=== PATIENT | male | born 1990 | race African-American/Black ===

== ENCOUNTER 2016-08-23 16:56 | Emergency (ER) | payer OTHER ==
[2016-08-23] MEDS ORDERED: DEXAMETHASONE 10 MG/ML VIAL PO STA (17:25)
[2016-08-23] MEDS ORDERED: DEXAMETHASONE 10 MG/ML VIAL ONE (17:27)
== END 2016-08-23 17:45 | disposition home or self-care (01) ==
DX: J06.9 Acute upper respiratory infection, unspecified (principal); B97.89 Other viral agents as the cause of diseases classified elsewhere; F17.200 Nicotine dependence, unspecified, uncomplicated

== ENCOUNTER 2016-10-18 17:58 | Emergency (ER) | payer OTHER ==
[2016-10-18] MEDS ORDERED: IBUPROFEN 600 MG TABLET PO STA (19:55)
[2016-10-18] MEDS ORDERED: ACETAMINOPHEN 325 MG TABLET PO STA (19:56)
[2016-10-18] MEDS ORDERED: ACETAMINOPHEN 325 MG TABLET PO ONE (20:01)
[2016-10-18] MEDS ORDERED: IBUPROFEN 600 MG TABLET PO ONE (20:01)
== END 2016-10-18 20:09 | disposition home or self-care (01) ==
DX: S80.01XA Contusion of right knee, initial encounter (principal); S90.01XA Contusion of right ankle, initial encounter; W22.8XXA Striking against or struck by other objects, initial encounter; Y93.89 Activity, other specified; Y99.0 Civilian activity done for income or pay; F17.200 Nicotine dependence, unspecified, uncomplicated
CPT/HCPCS: 73564; 73610; 99283; A9270

== ENCOUNTER 2016-12-11 10:34 | Emergency (ER) | payer OTHER ==
[2016-12-11] MEDS ORDERED: NICOTINE 14 MG PATCH TOP ONE (15:14)
[2016-12-11] MEDS ORDERED: NICOTINE 14 MG PATCH TOP STA (15:15)
== END 2016-12-11 17:47 ==
DX: Z03.6 Encounter for observation for suspected toxic effect from ingested substance ruled out (principal); R11.2 Nausea with vomiting, unspecified; F32.9 Major depressive disorder, single episode, unspecified; R07.9 Chest pain, unspecified; R45.851 Suicidal ideations; F17.200 Nicotine dependence, unspecified, uncomplicated
CPT/HCPCS: 36415; 80053; 80306; 80307; 80320; 80329; 81003; 83605; 83690; 84484; 85025; 93005; 93010; 99284; 99285; A9270

== ENCOUNTER 2017-01-29 09:26 | Emergency (ER) | payer OTHER ==
[2017-01-29 09:31] VITALS: BP 129/77
--- NOTE | 2017-01-29 09:45 | ED Physician Documentation ---
PD HPI GI BLEED - Stated complaint Stated Complaint: MALE - Chief complaint Chief Complaint: General - History obtained from History obtained from: Patient - History of Present Illness Timing - onset: How many weeks ago (3-4 weeks of pains at rectum.) Timing - duration: Weeks (he has had 3-4 weeks or rectal area pain with BMs and wiping. It has been more consistent pain the past several days. Noted some red blood with wiping at times. No noted mucous or discharge.) Timing - details: Gradual onset, Waxing and waning Associated symptoms: BRBPR (small amount with wiping after BMs), Constipation ( firm to hard at times). No: Vomiting, Black/tarry stool, Diarrhea, Abdominal pain Contributing factors: No: Sick contact, Bad food Similar symptoms before: Diagnosis (hemorrhoids but not usually this painful) Recently seen: Not recently seen Review of Systems Constitutional: denies: Fever, Chills GI: denies: Nausea, Vomiting : denies: Dysuria, Frequency, Discharge Skin: denies: Rash, Lesions PD PAST MEDICAL HISTORY - Past Medical History Past Medical History: Yes Cardiovascular: None Respiratory: None Endocrine/Autoimmune: None : Other Psych: Depression - Past Surgical History Past Surgical History: No - Present Medications Home Medications: Ambulatory Orders Medication Instructions Recorded Confirmed Docusate Sodium 100 mg PO DAILY #30 capsule 01/29/17 Fluoxetine HCl [Prozac] 20 mg PO DAILY 01/29/17 01/29/17 Hydrocortisone Acetate [Anucort-Hc] 25 mg RC DAILY #5 supp.rect 01/29/17 Naproxen [Naprosyn] 500 mg PO BID #20 tablet 01/29/17 Trazodone HCl 50 mg PO DAILY 01/29/17 01/29/17 - Allergies Allergies/Adverse Reactions: Allergies Allergy/AdvReac Type Severity Reaction Status Date / Time No Known Drug Allergies Allergy Verified 08/23/16 17:06 - Social History Does the pt smoke?: Yes Smoking Status: Current every day smoker Does the pt drink ETOH?: Yes Does the pt have substance abuse?: No - Immunizations Immunizations are current?: Yes - POLST Patient has POLST: No PD ED PE NORMAL - Vitals Vital signs reviewed: Yes - General General: Alert and oriented X 3, Well developed/nourished, Other (slightly anxious) - Abdomen Abdomen: Normal bowel sounds, Soft, Non tender, Non distended - Male Male : Other (normal genitalia without rash/ discharge. ) - Rectal Rectal: Other (external hemorrhoid without tenderness, mild inflammation. Digital exam with marked tenderness and some swelling at posterior-left aspect. Limited exam due to discomfort and some rectal spasming during it. No other obvious problem felt. No perirectal fullness nor tenderness. ) Results - Vitals Vitals: Vital Signs - 24 hr 01/29/17 09:29 Temperature 36.6 C Heart Rate 86 Respiratory 18 Rate Blood Pressure 129/77 O2 Saturation 99 Oxygen O2 Source Room air Departure - Departure Disposition: Home, Self Care Clinical Impression: Rectal or anal pain Hemorrhoids Qualifiers: Hemorrhoid type: unspecified Qualified Code(s): K64.9 - Unspecified hemorrhoids Condition: Stable Record reviewed to determine appropriate education?: Yes Instructions: ED Hemorrhoids Follow-Up: Tucker Downing MD [Primary Care Provider] - Mohsen Go DO [Provider Admit Priv/Credential] - Prescriptions: Hydrocortisone Acetate [Anucort-Hc] 25 mg RC DAILY #5 supp.rect Docusate Sodium 100 mg PO DAILY #30 capsule Naproxen [Naprosyn] 500 mg PO BID #20 tablet Comments: Drink lots of fluids. Docusate stool softener daily for the next 2-3 weeks. Naproxen twice daily for 7-10 days for pain and inflammation. Anusol suppository daily for 5 days to treat swelling of hemorrhoids. There is swelling and tenderness of the hemorrhoids. Follow up with Surgery, call for appt outpatient, to discuss getting sigmoidoscope or such to ensure no other problems up higher than the rectum itself. Recheck with PMD if not improved over the next few days.
[2017-01-29] MEDS ORDERED: ACETAMINOPHEN 325 MG TABLET PO STA (10:14)
[2017-01-29] MEDS ORDERED: IBUPROFEN 600 MG TABLET PO STA (10:14)
[2017-01-29] MEDS ORDERED: IBUPROFEN 600 MG TABLET PO ONE (10:15)
[2017-01-29] MEDS ORDERED: ACETAMINOPHEN 325 MG TABLET PO ONE (10:15)
== END 2017-01-29 10:27 | disposition home or self-care (01) ==
LOC: ED 09:26
DX: K62.89 Other specified diseases of anus and rectum (principal); K64.4 Residual hemorrhoidal skin tags; K59.00 Constipation, unspecified; F17.200 Nicotine dependence, unspecified, uncomplicated
CPT/HCPCS: 99283; A9270

== ENCOUNTER 2017-03-03 11:16 | Day surgery (SDC) | payer OTHER ==
[2017-03-03] MEDS ORDERED: LACTATED RINGERS 1,000 ML IV ONE ×2 (11:49→13:05)
[2017-03-03] MEDS ORDERED: ceFAZolin 2 GM/50 ML 50 ML IV ONE (11:50)
[2017-03-03] MEDS ORDERED: DEXAMETHASONE 4 MG/ML VIAL IVP ONE (12:10)
[2017-03-03] MEDS ORDERED: PROPOFOL 200 MG/20 ML VIAL IVP ONE (12:10)
[2017-03-03] MEDS ORDERED: MIDAZOLAM 2 MG/2 ML VIAL IVP ONE (12:10)
[2017-03-03] MEDS ORDERED: SUCCINYLCHOLINE 200 MG/10 ML VIAL IVP ONE (12:10)
[2017-03-03] MEDS ORDERED: fentaNYL 100 MCG/2 ML VIAL IVP ONE (12:10)
[2017-03-03] MEDS ORDERED: ROCURONIUM 50 MG/5 ML VIAL IVP ONE (12:10)
[2017-03-03] MEDS ORDERED: KETOROLAC 30 MG/ML VIAL IVP ONE (12:10)
[2017-03-03] MEDS ORDERED: ONDANSETRON 4 MG/2 ML VIAL IVP ONE (12:10)
[2017-03-03] MEDS ORDERED: THROMBIN (BOVINE) 5,000 UNIT VIAL TOP ONE (12:37)
[2017-03-03] MEDS ORDERED: BUPIVACAINE 0.25%-EPI 1:200000 PF 30 ML VIAL SUBQ ONE (12:37)
[2017-03-03] MEDS ORDERED: LIDOCAINE 1% 50 ML MDV SUBQ ONE (12:37)
[2017-03-03] MEDS: fentaNYL 100 MCG/2 ML VIAL ONE ×3 (13:39→14:11)
[2017-03-03] MEDS ORDERED: HYDROmorphone 1 MG/ML SYRINGE ONE (14:15)
[2017-03-03] MEDS ORDERED: oxyCOD/ACETAMIN 5 MG/325 MG TABLET PO ONE (14:36)
[2017-03-03 15:30] VITALS: BP 118/81
--- NOTE | 2017-03-05 08:57 | OPERATIVE REPORT ---
DATE OF SURGERY: 03/03/2017 00:00:00 SURGEON: Lacie England MD. PREOPERATIVE DIAGNOSIS: External hemorrhoids. POSTOPERATIVE DIAGNOSIS: External hemorrhoids. INDICATION FOR PROCEDURE: This is a 26-year-old male who has anal skin tag and external hemorrhoids, which are bothersome. FINDINGS: After obtaining informed consent from the patient, he was brought into the operating room and intubated by Anesthesia. He was then positioned in the prone position, taking note of pressure points. He was administered 2 grams of Ancef. He was prepped and draped in the usual sterile fashion. A timeout was taken according to protocol. Digital rectal exam was performed, as well as anoscopy, which demonstrated an anal skin tag in the 12 o'clock position and external hemorrhoids in the 6 o'clock position. The anal skin tag was grasped and was excised with a 15 blade, cauterizing the edges to obtain hemostasis. The incision was then closed with a running 3-0 Chromic. The 2 external hemorrhoids located in the 6 o'clock position were then addressed. These were grasped, ensuring the base of the hemorrhoid was included within the clamp. I then excised with the 15 blade for the skin and cautery for the subcutaneous hemorrhoidal tissue. The incision was closed with 3-0 Chromic. The second hemorrhoid was addressed in a similar manner. The incision lines were then inspected for any signs of bleeding and none was noted. The anal cavity was irrigated. Internal hemorrhoids were not present on anoscopy. The anal canal was then packed with Gelfoam and thrombin. Bacitracin was applied to the external incisions. Fluff and underwear were then placed. The patient was extubated and taken to the recovery room in stable condition. ESTIMATED BLOOD LOSS: 5 mL. COMPLICATIONS: None. SPECIMENS: None. JOB #: [id number] EXT JOB #:[id number] ABRAHAN
== END 2017-03-03 11:17 | disposition home or self-care (01) ==
LOC: SDS 11:16
PROVIDERS: ATTEND Surgery
PROC: 06BY0ZC Excision of Hemorrhoidal Plexus, Open Approach (ICD-10-PCS; principal; 2017-03-03 13:00)
DX: K64.4 Residual hemorrhoidal skin tags (principal); F17.210 Nicotine dependence, cigarettes, uncomplicated
CPT/HCPCS: 46250; A9270; J0690; J1170; J7120